=== PATIENT | female | born 1975 | race Caucasian/White ===

== ENCOUNTER 2020-01-07 10:49 | Observation (INO) ==
[2020-01-07] MEDS ORDERED: cefOXitin 1,000 MG, 0.9 % Sodium Chloride 1,000 ML IR ONE ×2 (13:00→19:52)
[2020-01-07] MEDS ORDERED: *HR* Meperidine 25 MG/ML SYRINGE IVP PRN ×2 (14:07→19:52)
[2020-01-07] MEDS ORDERED: Acetaminophen IV 1,000 MG/100 ML BAG IVPB ONE (14:07)
[2020-01-07] MEDS ORDERED: *HR* FentaNYL (PF) 100 MCG/2 ML VIAL IVP PRN ×2 (14:07→19:52)
[2020-01-07] MEDS ORDERED: *HR* Promethazine 25 MG/ML VIAL IVP PRN ×2 (14:07→19:52)
[2020-01-07] MEDS ORDERED: *HR* OxyCODONE Immed Rel 5 MG TABLET PO PRN ×2 (14:07→19:52)
[2020-01-07] MEDS ORDERED: *HR* OxyCODONE/APAP 5/325 TABLET PO PRN (14:14)
[2020-01-07] MEDS ORDERED: Ondansetron 4 MG/2 ML VIAL IVP PRN ×2 (14:14→19:52)
[2020-01-07] MEDS ORDERED: 0.9 % Sodium Chloride 1,000 ML IVC SCH (14:15)
[2020-01-07 15:40] LABS: Basophils # 0.1 K/mcL (0.0-0.2); Basophils % 0.5 %; Eosinophils % 0.2 %; Hematocrit 43.9 % (35.3-44.9); Immature Granulocytes % 0.8 % (0-4); Lymphocytes # 1.2 K/mcL (0.6-4.6); Lymphocytes % 11.1 %; Mean Corpuscular HGB Conc 34.2 g/dL (31.6-35.5); Mean Corpuscular Volume 84.9 fL (83.0-100.0); Mean Platelet Volume 9.1 fL (9.4-12.4); Monocytes # 0.7 K/mcL (0.0-1.3); Monocytes % 6.2 %; Neutrophils # 8.7 K/mcL (1.6-8.9); Platelet Count 236 K/mcL (140-400); Red Blood Count 5.17 M/mcL (3.82-4.97); Red Cell Distribution Width 12.9 % (11.5-14.5); Segmented Neutrophils % 81.2 %; White Blood Count 10.7 K/mcL (4.3-11.1)
[2020-01-07 15:55] LABS: BUN/Creatinine Ratio 14 (6-26); Blood Urea Nitrogen 10 mg/dL (6-20); Calcium 9.1 mg/dL (8.6-10.3); Carbon Dioxide 24 mEq/L (23-29); Chloride 105 mEq/L (98-107); Glucose 210 mg/dL (70-105); Osmolality,Calculated 291 (280-300); Sodium 138 mEq/L (136-145); eGFR For African Americans > 60 (> 60); eGFR For Non-African Americans > 60 (> 60)
[2020-01-07 15:58] LABS: Bilirubin,Urine Negative (Negative); Blood,Urine Small (Negative); Clarity,Urine Clear (Clear); Color,Urine Yellow (Yellow); Glucose,Urine (UA) Normal (Normal); Ketones,Urine Negative (Negative); Leukocyte Esterase,Urine Negative (Negative); Mucus,Urine Few per lpf (None-Few); Nitrite,Urine Negative (Negative); Protein,Urine 50 mg/dL (Neg-Trace); Specific Gravity,Urine > 1.030 (1.010-1.025); Squamous Epithelial Cell,Urine Moderate per hpf (None-Few); WBC,Urine 0-3 per hpf (0-3)
[2020-01-07] MEDS ORDERED: cefOXitin 2,000 MG in Water for inj. (sterile) 20 ML IVP SCH (16:00)
[2020-01-07] MEDS ORDERED: *HR* FentaNYL (PF) 100 MCG/2 ML VIAL ONE (17:14)
[2020-01-07] MEDS ORDERED: CefOXitin 2,000 MG VIAL ONE (17:29)
[2020-01-07] MEDS ORDERED: *HR* HYDROMORPHONE 2 MG/ML VIAL ONE (18:08)
[2020-01-07] MEDS: *HR* HYDROmorphone PF 0.5 MG/0.5 ML SYRINGE IVP PRN ×2 (18:39→18:53)
[2020-01-07] MEDS ORDERED: *HR* HYDROmorphone PF 0.5 MG/0.5 ML SYRINGE IVP PRN (19:52)
[2020-01-07] MEDS: 0.9 % Sodium Chloride 1,000 ML IVC SCH (20:20)
[2020-01-08] MEDS: cefOXitin 2,000 MG in Water for inj. (sterile) 20 ML IVP SCH ×2 (00:39→09:41)
[2020-01-08] MEDS: *HR* OxyCODONE/APAP 5/325 TABLET PO PRN ×2 (00:44→09:41)
[2020-01-08] MEDS: 0.9 % Sodium Chloride 1,000 ML IVC SCH (05:36)
[2020-01-08 07:13] VITALS: BP 112/74
== END 2020-01-08 11:43 | disposition home or self-care (01) ==
LOC: 3ANU
PROVIDERS: ADMIT Surgery; ATTEND Surgery